=== PATIENT | female | born 1940 | race Caucasian/White ===

== ENCOUNTER 2017-09-26 15:10 | Inpatient (IN) | payer MEDICARE, MEDICAID ==
[~2017-09-26] VITALS: Ht 154.9 cm; Wt 52.1 kg
[2017-09-26] MEDS ORDERED: PLEASE ENTER ALLERGIES MC SCH ×2 (15:30)
[2017-09-26] MEDS ORDERED: SODIUM CHLORIDE 0.9% 1,000ML IVBOLUS ONE (15:30)
[2017-09-26] MEDS ORDERED: PLEASE ENTER HEIGHT AND WEIGHT MC SCH (15:30)
[2017-09-26] MEDS ORDERED: LISI40TA PO (15:35)
[2017-09-26] MEDS ORDERED: ASPI325T17 PO (15:35)
[2017-09-26] MEDS ORDERED: OXYC-302 PO (15:35)
[2017-09-26] MEDS ORDERED: SENN-31 PO (15:35)
[2017-09-26] MEDS ORDERED: MELO7.5T31 PO (15:35)
[2017-09-26] MEDS ORDERED: ASPI-496 PO (15:35)
[2017-09-26] MEDS ORDERED: ATOR10TA PO (15:35)
[2017-09-26] MEDS ORDERED: MELO15TA6 PO (15:35)
[2017-09-26] MEDS ORDERED: SAXA5TAB PO (15:35)
[2017-09-26] MEDS ORDERED: METF500T4 PO (15:35)
[2017-09-26] MEDS ORDERED: SODIUM CHLORIDE 0.9% 1,000 ML IV ONE (15:47)
[2017-09-26] MEDS ORDERED: SODIUM CHLORIDE FLUSH 10ML SYR IVF ONE (16:00)
[2017-09-26] MEDS ORDERED: ONDANSETRON 2MG/ML, 2ML IVPush ONE (16:00)
[2017-09-26 16:26] LABS: HEMOGLOBIN 10.2 g/dL (11.7-16.4); WHITE BLOOD COUNT 13.6 x10^3/uL (3.4-10)
[2017-09-26 16:37] LABS: BLOOD UREA NITROGEN 24 mg/dL (7-18)
[2017-09-26 16:41] LABS: ASPARTATE AMINO TRANSFERASE 11 U/L (15-37)
[2017-09-26] MEDS ORDERED: OMNIPAQUE 350 MG/ML, 100ML BOTTLE ONE (17:34)
[2017-09-26] MEDS ORDERED: LORazepam 2 MG/ML, 1ML IVPush PRN (19:00)
[2017-09-26] MEDS ORDERED: hydrALAzine 20 MG/ML, 1ML IVPush PRN (19:00)
[2017-09-26] MEDS ORDERED: ONDANSETRON 2MG/ML, 2ML IVPush PRN (19:00)
[2017-09-26 20:30] VITALS: BP 128/64
[2017-09-26] MEDS: SODIUM CHLORIDE 0.9% 1,000 ML IV SCH (21:19)
[2017-09-26] MEDS: FAMOTIDINE 20 MG/2 ML IVPush SCH (21:19)
[2017-09-26] MEDS: INSULIN ASPART 100 UNITS/ML, PEN SQ-INSULIN SCH (21:20)
[2017-09-26] MEDS: ENOXAPARIN 40 MG/0.4 ML SQ SCH (21:20)
[2017-09-26 21:56] VITALS: BP 128/64
[2017-09-26] MEDS: HYDROmorphone 2 MG/ML, 1ML IVPush PRN (23:52)
[2017-09-27 03:09] VITALS: BP 118/62
[2017-09-27 05:35] LABS: BLOOD UREA NITROGEN 20 mg/dL (7-18)
[2017-09-27 05:39] LABS: ASPARTATE AMINO TRANSFERASE 10 U/L (15-37)
[2017-09-27 05:56] LABS: HEMATOCRIT 27.7 % (34.6-47.8); HEMOGLOBIN 9.3 g/dL (11.7-16.4)
[2017-09-27] MEDS: SODIUM CHLORIDE 0.9% 1,000 ML IV SCH ×2 (06:35→14:42)
[2017-09-27 06:59] VITALS: BP 105/55
[2017-09-27] MEDS: INSULIN ASPART 100 UNITS/ML, PEN SQ-INSULIN SCH ×4 (07:00→20:16)
[2017-09-27] MEDS ORDERED: MAGNESIUM SULFATE PMX 2GM/50ML 50 ML IV ONE (07:30)
[2017-09-27] MEDS: FAMOTIDINE 20 MG/2 ML IVPush SCH (09:58)
[2017-09-27 13:04] VITALS: BP 109/64
[2017-09-27] MEDS: DOCUSATE 100 MG CAPSULE PO SCH ×2 (14:30→20:14)
[2017-09-27] MEDS ORDERED: POLYETHYLENE GLYCOL 17 GM PACKET NG ONE (14:30)
[2017-09-27] MEDS ORDERED: BISACODYL 10 MG SUPP PR PRN (14:30)
[2017-09-27] MEDS: ENOXAPARIN 40 MG/0.4 ML SQ SCH (19:59)
[2017-09-27] MEDS: HYDROmorphone 2 MG/ML, 1ML IVPush PRN (19:59)
[2017-09-27 20:00] VITALS: BP 97/59
[2017-09-28 02:00] VITALS: BP 148/78
[2017-09-28] MEDS: SODIUM CHLORIDE 0.9% 1,000 ML IV SCH ×2 (04:27→15:03)
[2017-09-28 07:20] VITALS: BP 146/68
[2017-09-28] MEDS: FAMOTIDINE 20 MG/2 ML IVPush SCH (07:54)
[2017-09-28] MEDS: INSULIN ASPART 100 UNITS/ML, PEN SQ-INSULIN SCH ×4 (07:54→21:00)
[2017-09-28] MEDS: DOCUSATE 100 MG CAPSULE PO SCH ×2 (07:54→20:53)
[2017-09-28 14:21] VITALS: BP 130/76
[2017-09-28 19:31] VITALS: BP 119/66
[2017-09-28] MEDS: ENOXAPARIN 40 MG/0.4 ML SQ SCH (19:51)
[2017-09-28] MEDS: HYDROmorphone 2 MG/ML, 1ML IVPush PRN (23:28)
[2017-09-29 01:26] VITALS: BP 124/71
[2017-09-29 07:14] VITALS: BP 151/65
[2017-09-29] MEDS: INSULIN ASPART 100 UNITS/ML, PEN SQ-INSULIN SCH ×2 (08:01→12:01)
[2017-09-29] MEDS: FAMOTIDINE 20 MG/2 ML IVPush SCH (08:01)
[2017-09-29] MEDS: DOCUSATE 100 MG CAPSULE PO SCH (08:01)
[2017-09-29 13:17] VITALS: BP 146/89
[2017-09-29 15:14] VITALS: BP 142/79
== END 2017-09-29 15:59 | disposition home or self-care (01) | DRG 682 ==
LOC: ED 18:24 → EDIP 18:25 → ED 18:59 → 3NE 20:13
PROVIDERS: ADMIT Family Medicine; ATTEND Family Medicine
DX: N17.9 Acute kidney failure, unspecified (principal); S72.001A Fracture of unspecified part of neck of right femur, initial encounter for closed fracture; E86.0 Dehydration; D64.9 Anemia, unspecified; E11.9 Type 2 diabetes mellitus without complications; E87.1 Hypo-osmolality and hyponatremia; I70.1 Atherosclerosis of renal artery; E78.5 Hyperlipidemia, unspecified; K52.9 Noninfective gastroenteritis and colitis, unspecified; I10 Essential (primary) hypertension; I45.10 Unspecified right bundle-branch block; I77.1 Stricture of artery
CPT/HCPCS: 36415; 74177; 80053; 81003; 82962; 83690; 83735; 84100; 84443; 85025; 93005; 99285; J1170; J1650; Q9967; J3475; J7030; S0028